=== PATIENT | male | born 1960 | race Caucasian/White ===

== ENCOUNTER → 2018-05-31 | Outpatient (CLI) | payer OTHER ==
--- NOTE | 2018-05-31 16:16 | DIAGNOSTIC IMAGING REPORT ---
TWO VIEW CHEST CLINICAL HISTORY: Atypical chest pain. FINDINGS: PA and lateral chest radiographs are obtained No prior studies are available for comparison at the time of dictation. The heart is top normal for projection. The pulmonary vasculature is noncongested. The lungs and pleural spaces are clear. Nipple shadows project over the lung bases. There is no pneumothorax. The bony thorax appears intact. IMPRESSION: No acute cardiopulmonary abnormality. Electronically signed by: Bobby Winters M.D. 05/31/2018 4:15 PM Dictated Date/Time: 05/31/2018 4:14 PM
== END | disposition home or self-care (01) ==
LOC: C.RAD1850 15:49
PROVIDERS: ATTEND Hospitalist
DX: R07.9 Chest pain, unspecified (principal)